=== PATIENT | male | born 1980 | race Hispanic/Latino ===

== ENCOUNTER → 2021-07-11 17:23 | Outpatient (CLI) | payer OTHER, SELFPAY ==
[2021-07-11 18:50] LABS: COVID19 -Nasal RAPID Negative (Negative)
== END ==
PROVIDERS: Referring Provider Nurse Practitioner Family; Visit Provider Nurse Practitioner Family
DX: Z20.822 Contact with and (suspected) exposure to COVID-19 (principal); J02.9 Acute pharyngitis, unspecified; R05.9 Cough, unspecified
CPT/HCPCS: 87635

== ENCOUNTER 2024-05-25 11:43 | Day surgery (SDC) | payer OTHER, SELFPAY ==
--- NOTE | 2024-05-25 | PATH_ITS ---
[facility] Accession Number: [id number] No. of containers..02 Tissue . 01 Material submitted: . PART A: colon - SIGMOID COLON POLYP PART B: colon - RANDOM COLON . 01 Diagnosis: Part A: SIGMOID COLON POLYP: Tubular adenoma. . Part B: RANDOM COLON: Colonic mucosa with no diagnostic alterations. No active inflammation, granulomas, dysplasia, or malignancy identified. No evidence of colitis. [facility] 05/26/2024 1448 Local . 01 Electronically signed: . Sedrick Jiménez MD, Pathologist NPI- [id number] . 01 Gross description: . Part A: SIGMOID COLON POLYP: Received in formalin is 1 fragment(s) of short, soft tissue measuring 0.4 x 0.3 x 0.2 cm submitted entirely in 1 cassette(s) . Part B: RANDOM COLON: Received in formalin are 2 fragment(s) of short, soft tissue measuring 0.1 x 0.1 x 0.1 cm to 0.4 x 0.2 x 0.1 cm submitted entirely in 1 cassette(s) /STEVEN 05/26/2024 1448 Local . 01 Pathologist provided ICD-10: D12.5 . 01 CPT . 315543, 830213 Specimen Comment: A courtesy copy of this report has been sent to [phone] Performed at: [address] [address], [place], [place] [id number] MD Sedrick Jiménez MD Phone: [phone]
[2024-05-25 12:02] VITALS: BP 128/82; PULSE 59; RESP 16; TEMP 36.1; O2SAT 100
[2024-05-25] MEDS: LACTATED RINGERS 1,000 ML 42 ML IV (12:08)
--- NOTE | 2024-05-25 13:06 | PM.HP.1 ---
History of Present Illness History of Present Illness Date Patient Seen: 05/25/24 Time Patient Seen: 13:07 Chief complaint: SDC Narrative: 44-year-old here for colonoscopy. I reviewed the recent office note by Jose Contreras. No changes. The patient has had a change in bowel habit over the last 6 months or so. Diagnostic colonoscopy is pursued today. [facility] Social History Smoking Status: Never smoker alcohol intake: current Meds Home Medications and Allergies Home Medications Medication Instructions Recorded Confirmed Type atorvastatin 40 mg PO DAILY 07/11/21 05/25/24 History diphenhydramine HCl 50 mg capsule 50 mg PO BEDTIME PRN Sleep 05/25/24 05/25/24 History losartan 50 mg PO DAILY 05/25/24 05/25/24 History Allergies Allergy/AdvReac Type Severity Reaction Status Date / Time No Known Drug Allergies Allergy Verified 05/25/24 11:58 Review of Systems Review of Systems ROS: Yes All systems reviewed with the patient and are negative except as otherwise documented Exam Vital Signs (past 8 hours): - 05/25/24 12:02 Temperature 97 F L Pulse Rate 59 L Respiratory Rate 16 Blood Pressure 128/82 Pulse Oximetry 100 Oxygen Delivery Method Room Air Oxygen Flow Rate 0 Oxygen Delivery Method Room Air Oxygen Flow Rate 0 Const General: cooperative HENMT Head: normal to inspection Eyes General: appearance normal, both eyes and all related structures Neck Neck: normal visual inspection Chest Chest: normal inspection of the chest Resp Effort & Inspection: normal respiratory effort Cardio Rate: regular rate GI Inspection: normal to inspection Skin General: no rashes or lesions noted Neuro General: patient alert and patient awake Extrem General: normal to inspection and no pedal edema Psych Appearance: grossly normal Assessment & Plan Assessment & Plan narrative: 44-year-old male with a change in bowel x6 months. Stools are not diarrhea per se but on the loose side. Diagnostic colonoscopy is pursued today. Time-Based Coding :: [TOTAL MINUTES] spent with patient and on the chart (including review of chart, obtaining history, exam, reviewing outside data, placing orders, documenting exam and treatment plan, and counseling patient) on [DATE].
--- NOTE | 2024-05-25 13:08 | PM.PREOP ---
Pre-operative Note Interval Note History & Physical reviewed/Exam performed by Physician: Yes Changes to H&P: No ASA Class (for procedural sedation): II
--- NOTE | 2024-05-25 13:49 | P.OP.COLON_ITS ---
Operative Date/Time/Diagnoses Date of procedure: 05/25/24 Time of procedure: 13:49 Pre-op diagnosis: Change in bowel habits Post-op diagnosis: same Procedure & Clinicians Study performed: Colonoscopy with hot snare polypectomy and random biopsies Same procedure as scheduled: Yes Indications: Change in bowel habits Surgeon: Wagner Mauricio Procedure Notes SCOAP/Timeout: Done Procedure in detail: After the risks and benefits were explained, written and verbal informed consent was obtained. The patient was brought into the procedure room and placed into the left lateral decubitus position. Please see anesthesia notes for sedation details. Digital rectal examination was accomplished. The scope was introduced into the patient and advanced under direct visualization to the cecum as identified by the appendiceal orifice and ileocecal valve. The scope was slowly withdrawn to carefully examine the mucosa for any defects or lesions. Comprehensive imaging was accomplished throughout the rectum including the dent ate line. The colon was decompressed, the scope was then removed from the patient who tolerated the procedure well. Pediatric colonoscope Bowel prep adequate after copious amounts of irrigation and suction Scope withdrawal time: . 12 minutes Sedation minutes: 22 Complications: none Impression: The patient had evidence of grade 2 internal hemorrhoids. No evidence of proctitis. No macroscopic colitis. Random colon biopsies were taken for exclusion of microscopic colitis. The patient had a fairly lengthy somewhat redundant colon. There was a moderate amount of semi-liquid green prep and stool debris left over which required copious amounts of irrigation for an adequ ate mucosal exam. In the sigmoid colon there was a semi pedunculated 5-6 mm polyp removed with hot snare. The terminal ileum was wide open and the mucosa appeared normal. Endoscopic diagnosis 1. Sigmoid polyp 2. Grade 2 hemorrhoids 3. Somewhat redundant colon Post-procedure Plan for aftercare: 1. Await histology 2. Timing of repeat colonoscopy will be contingent on pathology results. 3. [id number] fiber supplementation. Titrate the dose to the desired stool consistency and frequency. 4. Follow up GI clinic with Jose Contreras. Disposition: PACU
[2024-05-25 13:51] VITALS: BP 106/67; PULSE 66; RESP 18; TEMP 36.5; O2SAT 99
[2024-05-25 13:56] VITALS: BP 100/73; PULSE 68; RESP 25; TEMP 36.5; O2SAT 99
[2024-05-25 14:01] VITALS: BP 111/75; PULSE 61; RESP 19; TEMP 37.1; O2SAT 100
== END 2024-05-25 14:19 | disposition home or self-care (01) ==
PROVIDERS: Referring Provider Internal Medicine Gastroenterology; Visit Provider Internal Medicine Gastroenterology
PROC: 0DJD8ZZ Inspection of Lower Intestinal Tract, Via Natural or Artificial Opening Endoscopic (ICD-10-PCS; CPT 45378; principal; 2024-05-25 13:00)
DX: R19.4 Change in bowel habit (principal); K64.1 Second degree hemorrhoids; D12.5 Benign neoplasm of sigmoid colon
CPT/HCPCS: 45385; 45380; J2704

== ENCOUNTER → 2024-08-19 08:30 | Outpatient (CLI) | payer OTHER, SELFPAY ==
--- NOTE | 2024-08-19 08:31 | DI.ECHO.S_ITS ---
[facility] + [facility] : : [address] : [facility] : : [place], : : [place] [address] : : Phone: [phone] Echocardiogram Report + + :Name: GENO BROCK Study Date: 08/19/2024 Height: 64 in : :[facility] ReadingLocation: Weight: 157 lb : : Gender: Male BSA: 1.8 m2 : :: 1980 Age: 44 yrs BP: 152/114 mmHg: :Reason For Study: LVH : :Ordering Physician: PINKY CARDONA Performed By: Rell Dudley : :Referring: PINKY CARDONA : + + Interpretation Summary 1. The left ventricular contractility is normal. Estimate ejection fraction is greater than 55% with no segmental wall motion abnormalities. No LVH. Normal diastolic function. 2. The right ventricular contractility is normal. 3. All cardiac chambers are of normal size. 4. No significant valvular abnormalities. 5. No obvious intracardiac shunts. 6. No obvious intra masses nor thrombi. 7. No hemodynamically significant pericardial effusion. 8. Low right-sided filling pressures. Conclusion: Normal biventricular function with no significant valvular nor structural abnormalities. Procedure: A two-dimensional transthoracic echocardiogram with color flow and Doppler was performed. The study quality was technically good. There is no prior echocardiogram noted for this patient. The patient was in normal sinus rhythm during the exam. Left Ventricle: The left ventricle is normal in size. There is normal left ventricular wall thickness. There is no ventricular septal defect visualized. The ejection fraction is estimated to be 55-60%. There are no focal wall motion abnormalities. Diastolic parameters suggest probable normal left ventricular diastolic function and normal filling pressures. Right Ventricle: The right ventricle is normal in size and function. Atria: The left atrial size is normal. Right atrial size is normal. There is no Doppler evidence for an atrial septal defect. Mitral Valve: The mitral valve leaflets are slightly calcified. The mitral valve leaflets appear to open well. There is no mitral regurgitation noted. Aortic Valve: The aortic valve is trileaflet. The aortic valve opens well. No aortic regurgitation is present. Tricuspid Valve: The tricuspid valve is normal in structure and function. No tricuspid regurgitation. Pulmonic Valve: The pulmonic valve is normal in structure and function. There is no pulmonic valvular regurgitation. Great Vessels: The aortic root is normal size. The dimensions of the ascending aorta are normal. The pulmonary artery is normal size. The IVC is of normal diameter and collapses greater than 50% with a sniff. This suggests a low right atrial pressure of 3 mm Hg. Pericardium/ Pleura There is no pericardial effusion. There is no pleural effusion. MMode/2D Measurements & Calculations LVIDd: 4.0 cm AoV Openin.6 cm LVIDs: 2.9 cm LVOT diam: 2.0 cm IVSd: 0.99 cm Ao root diam: 3.0 cm LVPWd: 0.84 cm asc Aorta Diam: 3.2 cm LV little. diameter/BSA (cm/m^2): 2.3 LV sys. diameter/BSA (cm/m^2): 1.7 FS: 26.0 % EPSS: 0.95 cm LA A2 area: 14.8 cm2 RA long axis: 4.6 cm LA A4 area: 15.7 cm2 RA area: 13.3 cm2 LA length (vol): 4.9 cm RA vol: 32.9 ml LA vol: 40.1 ml RA : 18.7 ml/m2 LA vol index: 22.7 ml/m2 RVD1 (basal): 2.8 cm IVC diam: 1.7 cm RVD2 (mid): 2.5 cm TAPSE: 2.1 cm Doppler Measurements & Calculations Ao V2 max: 136.8 cm/sec LVOT Max Jordi: 112.9 cm/sec Ao V2 mean: 103.7 cm/sec LV V1 max P.1 mmHg Ao V2 VTI: 29.6 cm LV V1 VTI: 22.8 cm Ao max P.5 mmHg Ao mean P.6 mmHg GUILLE(I,D): 2.4 cm2 MV E max jordi: 75.2 cm/sec GUILLE(V,D): 2.6 cm2 MV A max jordi: 65.4 cm/sec GUILLE indexed to BSA (cm^2/m^2): 1.4 MV E/A: 1.1 sev ratio: 0.77 Med Peak E' Jordi: 7.7 cm/sec E/E' med: 9.7 Lat Peak E' Jordi: 10.0 cm/sec E/E' lat: 7.5 E/e' average: 8.6 MV dec time: 0.17 sec PA V2 max: 83.9 cm/sec PA V2 mean: 57.6 cm/sec PA mean P.5 mmHg PA pr(Accel): 1.9 mmHg SV(LVOT): 72.4 ml Reading Physician:
== END ==
PROVIDERS: PCP Nurse Practitioner Family; Referring Provider Internal Medicine; Visit Provider Internal Medicine
DX: I51.7 Cardiomegaly (principal)
CPT/HCPCS: 93306